=== PATIENT | female | born 1935 | race Caucasian/White ===

== ENCOUNTER 2024-01-20 15:37 | Outpatient (CLI) | payer MEDICARE, OTHER, SELFPAY | END 2024-01-20 15:38 | disposition home or self-care (01) | LOC: AMB 02-02 15:08 | PROVIDERS: PCP Nurse Practitioner Family; Visit Provider Emergency Medicine Emergency Medical Services | DX: I46.9 Cardiac arrest, cause unspecified (principal) ==